=== PATIENT | male | born 1930 | race Caucasian/White ===

== ENCOUNTER 2018-03-21 03:18 | Emergency (ER) | payer MEDICARE, BC ==
--- NOTE | 2018-03-21 03:42 | EDM.PDOC ---
ED HPI GENERAL MEDICAL PROBLEM - General Chief Complaint: Fever Stated Complaint: [facility] Time Seen by Provider: 03/21/18 03:20 Source of Information: Reports: Patient, EMS History Limitations: Reports: No Limitations - History of Present Illness INITIAL COMMENTS - FREE TEXT/NARRATIVE: 79-year-old male, resident of a local shelter had an abdominal surgery 1 month ago and had been doing well but last night developed a spike of fever at 1 AM. He was given antipyretics, but 2 hours later was still febrile and having shaking chills so they sent him in for evaluation. He has nausea and feels "awful" but denies any specific symptoms such as shortness of breath or cough, sore throat, dysuria, or pain. Onset: Sudden (Fever for the last 3 hours) Severity: Moderate Associated Symptoms: Reports: Confusion, Fever/Chills, Nausea/Vomiting. Denies : Chest Pain, Cough, Shortness of Breath - Related Data Allergies Allergy/AdvReac Type Severity Reaction Status Date / Time No Known Allergies Allergy Verified 01/08/17 06:54 Home Meds: Home Meds Ascorbic Acid [Vitamin C] 500 mg PO DAILY 10/13/16 [History] Aspirin [[place] Aspirin] 81 mg PO DAILY 10/13/16 [History] Calcium Citrate/Vitamin D2 [Rashad-Citrate Plus Vitamin D Tab] 1 each PO DAILY [History] Diltiazem HCl [Dilt-XR] 120 mg PO DAILY 10/13/16 [History] Levothyroxine 150 mcg PO ACBREAKFAST 10/13/16 [History] Meclizine [Antivert] 25 mg PO TID PRN 10/13/16 [History] Multivitamin [Multi-Day Vitamins] 1 each PO DAILY 10/13/16 [History] [place]-3/DHA/Epa/Fish Oil [[place] 3 500 Softgel] 1 each PO DAILY 10/13/16 [History ] Docusate Calcium [Surfak] 1 cap PO DAILY 10/22/16 [History] *Prostat 1 oz PO TID 03/21/18 [History] Hydrocodone/Acetaminophen [Hydrocodon-Acetaminophen 5-325] 1 each PO Q8H PRN 05/03 [History] Ondansetron [Zofran ODT] 4 mg PO Q6H PRN 03/21/18 [History] Past Medical History HEENT History: Reports: Cataract, Hard of Hearing, Impaired Vision Cardiovascular History: Reports: High Cholesterol, Hypertension Other Cardiovascular History: dependent edema Respiratory History: Reports: Other (See Below) Other Respiratory History: upper respiratory infection Gastrointestinal History: Reports: Chronic Constipation Other Gastrointestinal History: ventral hernia. hypopharyngeal diverticulum Genitourinary History: Reports: BPH, Renal Calculus Other Genitourinary History: ED Neurological History: Reports: Vertigo Endocrine/Metabolic History: Reports: Hypothyroidism - Infectious Disease History Infectious Disease History: Reports: Chicken Pox, Measles, Mumps - Past Surgical History HEENT Surgical History: Reports: Adenoidectomy, Cataract Surgery, Tonsillectomy Social & Family History - Tobacco Use Smoking Status *Q: Never Smoker Second Hand Smoke Exposure: No - Caffeine Use Caffeine Use: Reports: Coffee - Alcohol Use Days Per Week of Alcohol Use: 7 Number of Drinks Per Day: 1 Total Drinks Per Week: 7 - Recreational Drug Use Recreational Drug Use: No ED ROS GENERAL - Review of Systems Review Of Systems: See Below Constitutional: Reports: Fever, Chills, Malaise HEENT: Denies: Throat Pain Respiratory: Denies: Shortness of Breath, Cough Cardiovascular: Denies: Chest Pain GI/Abdominal: Reports: Nausea. Denies: Abdominal Pain, Vomiting : Reports: No Symptoms Skin: Reports: No Symptoms Neurological: Reports: Confusion Psychiatric: Reports: Anxiety ED EXAM, GENERAL - Physical Exam Exam: See Below Exam Limited By: No Limitations General Appearance: Alert, Anxious, Mild Distress (Currently having shaking chills, looks very uncomfortable and is nauseous) Eye Exam: Bilateral Eye: Normal Inspection (No jaundice, good hydration) Throat/Mouth: Normal Inspection Head: Atraumatic Respiratory/Chest: No Respiratory Distress, Lungs Clear Cardiovascular: Regular Rate, Rhythm. No: Tachycardia GI/Abdominal: Soft, Non-Tender (I do not elicit tenderness to palpation of the abdomen), Other (Incisions look excellent) Extremities: Pedal Edema (He does have 1+ symmetric lower extremity edema) Neurological: Alert. No: Oriented (Confused on time) Psychiatric: Anxious Skin Exam: Warm, Dry Course - Vital Signs Last Recorded V/S: Last Vital Signs Temp 99.3 F 03/21/18 06:56 Pulse 94 03/21/18 06:56 Resp 22 H 03/21/18 06:56 BP 84/51 L 03/21/18 06:56 Pulse Ox 95 03/21/18 06:56 - Orders/Labs/Meds Orders: Active Orders 24 hr Category Date Time Status Abdomen Pelvis w Cont [CT] Stat Exams 03/21/18 05:06 Taken Chest 1V Frontal [CR] Stat Exams 03/21/18 03:44 Taken CULTURE BLOOD [BC] Urgent Lab 03/21/18 03:50 Ordered CULTURE BLOOD [BC] Urgent Lab 03/21/18 04:11 Ordered UA W/MICROSCOPIC [URIN] Urgent Lab 03/21/18 04:31 Ordered Blood Culture x2 Reflex Set [OM.PC] Urgent Oth 03/21/18 03:43 Ordered Labs: Laboratory Tests 03/21/18 03/21/18 03/21/18 Range/Units 03:50 03:50 03:50 WBC 1.1 L (4.5-11.0) K/uL RBC 4.15 L (4.30-5.90) M/uL Hgb 12.0 (12.0-15.0) g/dL Hct 36.6 L (40.0-54.0) % MCV 88 (80-98) fL MCH 29 (27-31) pg MCHC 33 (32-36) % Plt Count 182 (150-400) K/uL Add Manual Diff Yes Neutrophils % (Manual) 57 (36-66) % Band Neutrophils % 18 H (5-11) % Lymphocytes % (Manual) 20 L (24-44) % Monocytes % (Manual) 2 (2-6) % Metamyelocytes % 3 % Sodium 135 L (140-148) mmol/L Potassium 4.3 (3.6-5.2) mmol/L Chloride 99 L (100-108) mmol/L Carbon Dioxide 22 (21-32) mmol/L Anion Gap 18.3 H (5.0-14.0) mmol/L BUN 22 H D (7-18) mg/dL Creatinine 1.5 H (0.8-1.3) mg/dL Est Cr Clr Drug Dosing 37.36 mL/min Estimated GFR (MDRD) 44 L (>60) Glucose 128 H (74-106) mg/dL Calcium 8.1 L (8.5-10.1) mg/dL Total Bilirubin 4.0 H D (0.2-1.0) mg/dL AST 366 H D (15-37) U/L ALT 373 H (12-78) U/L Alkaline Phosphatase 279 H D (46-116) U/L Troponin I < 0.017 (0.000-0.056) ng/mL Total Protein 6.8 (6.4-8.2) g/dL Albumin 2.4 L (3.4-5.0) g/dL Globulin 4.4 H (2.3-3.5) g/dL Albumin/Globulin Ratio 0.6 L (1.2-2.2) Urine Color Urine Appearance Urine pH (4.5-8.0) Ur Specific [place] (1.008-1.030) Urine Protein (NEGATIVE) mg/dL Urine Glucose (UA) (NEGATIVE) mg/dL Urine Ketones (NEGATIVE) mg/dL Urine Occult Blood (NEGATIVE) Urine Nitrite (NEGAITVE) Urine Bilirubin (NEGATIVE) Urine Urobilinogen (NORMAL) mg/dL Ur Leukocyte Esterase (NEGATIVE) Urine RBC (0-5) Urine WBC (0-5) Ur Epithelial Cells Amorphous Sediment Urine Bacteria Urine Mucus 03/21/18 Range/Units 04:31 WBC (4.5-11.0) K/uL RBC (4.30-5.90) M/uL Hgb (12.0-15.0) g/dL Hct (40.0-54.0) % MCV (80-98) fL MCH (27-31) pg MCHC (32-36) % Plt Count (150-400) K/uL Add Manual Diff Neutrophils % (Manual) (36-66) % Band Neutrophils % (5-11) % Lymphocytes % (Manual) (24-44) % Monocytes % (Manual) (2-6) % Metamyelocytes % % Sodium (140-148) mmol/L Potassium (3.6-5.2) mmol/L Chloride (100-108) mmol/L Carbon Dioxide (21-32) mmol/L Anion Gap (5.0-14.0) mmol/L BUN (7-18) mg/dL Creatinine (0.8-1.3) mg/dL Est Cr Clr Drug Dosing mL/min Estimated GFR (MDRD) (>60) Glucose (74-106) mg/dL Calcium (8.5-10.1) mg/dL Total Bilirubin (0.2-1.0) mg/dL AST (15-37) U/L ALT (12-78) U/L Alkaline Phosphatase (46-116) U/L Troponin I (0.000-0.056) ng/mL Total Protein (6.4-8.2) g/dL Albumin (3.4-5.0) g/dL Globulin (2.3-3.5) g/dL Albumin/Globulin Ratio (1.2-2.2) Urine Color Other Urine Appearance Clear Urine pH 6.0 (4.5-8.0) Ur Specific [place] 1.015 (1.008-1.030) Urine Protein 30 H (NEGATIVE) mg/dL Urine Glucose (UA) Normal (NEGATIVE) mg/dL Urine Ketones 15 H (NEGATIVE) mg/dL Urine Occult Blood Trace (NEGATIVE) Urine Nitrite Negative (NEGAITVE) Urine Bilirubin Moderate (NEGATIVE) Urine Urobilinogen 4 (NORMAL) mg/dL Ur Leukocyte Esterase Negative (NEGATIVE) Urine RBC 0-5 (0-5) Urine WBC 5-10 H (0-5) Ur Epithelial Cells Few Amorphous Sediment Not seen Urine Bacteria Few Urine Mucus Not seen Meds: Medications Discontinued Medications Generic Name Dose Route Start Last Admin Trade Name Freq PRN Reason Stop Dose Admin Sodium Chloride 1,000 mls @ 500 mls/hr 03/21/18 03:45 03/21/18 05:07 Normal Saline IV 999 mls/hr ASDIRECTED ZAINAB Infusion Ceftriaxone Sodium 1 gm/ 50 mls @ 100 mls/hr 03/21/18 04:25 03/21/18 04:41 Sodium Chloride IV 03/21/18 04:54 100 mls/hr ONETIME ONE Administration Levofloxacin/Dextrose 750 mg/ 150 mls @ 100 mls/hr 03/21/18 04:25 03/21/18 05 :38 Premix IV 03/21/18 05:54 100 mls/hr ONETIME ONE Administration Sodium Chloride 84 mls @ 3.5 mls/sec 03/21/18 05:30 03/21/18 05:32 Normal Saline IV 3.5 mls/sec ASDIRECTED ZAINAB Administration Lactated Ringer's 1,000 mls @ 1,000 mls/hr 03/21/18 05:45 03/21/18 05:46 Ringers, Lactated IV 1,000 mls/hr ASDIRECTED ZAINAB Administration Sodium Chloride 1,000 mls @ 1,000 mls/hr 03/21/18 06:30 03/21/18 06:26 Normal Saline IV 1,000 mls/hr ASDIRECTED ZAINAB Administration Lactated Ringer's 1,000 mls @ 999 mls/hr 03/21/18 06:45 03/21/18 06:49 Ringers, Lactated IV 999 mls/hr ASDIRECTED ZAINAB Administration Ibuprofen 600 mg 03/21/18 03:52 03/21/18 03:59 Motrin PO 03/21/18 03:53 600 mg ONETIME ONE Administration Iopamidol 133 ml 03/21/18 05:20 03/21/18 05:32 Isovue-300 (61%) IV 03/22/18 05:21 132 ml . DIRECTED PRN Administration RADIOLOGY EXAM - Re-Assessments/Exams Free Text/Narrative Re-Assessment/Exam: 03/21/18 03:42 This patient obviously has an infection, the source is unknown. Will get a 1 view chest x-ray, UA, CBC, CMP, blood cultures and hydration will be initiated. 03/21/18 05:02 Chest x-ray shows an effusion or infiltrate on the left base and left lateral costophrenic angle. A urine was obtained by catheter specimen because the patient was unable to urinate. White count returned low at 1000, bilirubin is 4.0 and LFTs are elevated. Rocephin 1 g along with 750 mg of IV Rocephin was started after the blood cultures obtained. 03/21/18 05:04 Troponin was 0. 03/21/18 05:10 UA was not dramatically abnormal, rare bacteria and WBCs. There was bilirubin and protein in the urine however. The rest of the liter of normal saline will be bolused, and the patient will then be scanned with IV contrast of the abdomen and pelvis. 03/21/18 06:32 CT scan confirmed with his possibly an intra-abdominal abscess as well as choledocholelithiasis. This was discussed with the hospitalist service and surgery, as well as surgery in [place] at [facility]. Dr. Manley, the physician who did his original surgery happened to be on-call and accepted him in transfer. 03/21/18 06:34 Temperature had normalized prior to transfer, patient remained alert and pain free but was fairly persistently hypotensive after the CT scan. Fluid boluses were continued. Patient was transferred urgently by air to [place]. 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 - My Orders Last 24 Hours: My Active Orders 03/21/18 03:43 Blood Culture x2 Reflex Set [OM.PC] Urgent 03/21/18 03:44 Chest 1V Frontal [CR] Stat 03/21/18 03:50 CULTURE BLOOD [BC] Urgent 03/21/18 04:11 CULTURE BLOOD [BC] Urgent 03/21/18 04:31 UA W/MICROSCOPIC [URIN] Urgent 03/21/18 05:06 Abdomen Pelvis w Cont [CT] Stat - Assessment/Plan Last 24 Hours: My Active Orders 03/21/18 03:43 Blood Culture x2 Reflex Set [OM.PC] Urgent 03/21/18 03:44 Chest 1V Frontal [CR] Stat 03/21/18 03:50 CULTURE BLOOD [BC] Urgent 03/21/18 04:11 CULTURE BLOOD [BC] Urgent 03/21/18 04:31 UA W/MICROSCOPIC [URIN] Urgent 03/21/18 05:06 Abdomen Pelvis w Cont [CT] Stat
[2018-03-21] MEDS ORDERED: Sodium Chloride 0.9% 1,000 ML IV SCH ×2 (03:45→06:30)
[2018-03-21] MEDS ORDERED: Ibuprofen 600 MG Tab PO ONE (03:52)
[2018-03-21] MEDS ORDERED: cefTRIAXone 1 GM in Sodium Chloride 0.9% 50 ML IV ONE (04:25)
[2018-03-21] MEDS ORDERED: Levofloxacin/Dextrose 5%-Water 750 MG in Premix Bag 1 BAG IV ONE (04:25)
[2018-03-21] MEDS ORDERED: Iopamidol 612 MG/ML 150 ML Bottle IV PRN (05:20)
[2018-03-21] MEDS ORDERED: Lactated Ringers 1,000 ML IV SCH ×2 (05:45→06:45)
[2018-03-21 06:57] VITALS: BP 84/51
--- NOTE | 2018-03-22 09:46 | CR ---
Chest 1V Frontal INDICATION: fever COMPARISON: 05/20/2013 chest x-ray and CT 02/19/2018 of the abdomen FINDINGS: AP portable chest. Heart size normal. Left pleural effusion persists. Lungs clear.
== END 2018-03-21 07:05 | disposition other institution (70) ==
LOC: JP.ED 03:18
DX: A41.9 Sepsis, unspecified organism (principal); R65.20 Severe sepsis without septic shock; T81.4XXA Infection following a procedure, initial encounter; K65.1 Peritoneal abscess; I10 Essential (primary) hypertension; Z79.899 Other long term (current) drug therapy; Z79.82 Long term (current) use of aspirin
CPT/HCPCS: 36415; 71045; 74177; 80053; 81001; 84484; 85025; 87040; 87077; 87186; 96361; 96365; 99285; A9270; J0696; J1956; J7030; J7040; J7050; J7120